=== PATIENT | male | born 1970 | race Caucasian/White ===

== ENCOUNTER 2021-05-27 20:12 | Observation (INO) ==
[2021-05-27] MEDS ORDERED: Naloxone 0.4 MG/ML INJ IVP PRN (23:23)
[2021-05-28 05:15] VITALS: PULSE 64
[2021-05-28 07:33] VITALS: BP 118/82; TEMP 98.5; O2SAT 96
[2021-05-28] MEDS ORDERED: methylPREDNISolone 125 MG/2 ML VIAL IVP ONE (09:00)
== END 2021-05-28 13:12 | disposition home or self-care (01) ==
LOC: 2NENU → SUATTDRO 21:40
PROVIDERS: ADMIT Internal Medicine; ATTEND Internal Medicine